=== PATIENT | male | born 1995 ===

== ENCOUNTER 2019-09-11 08:26 | Outpatient (CLI) | payer OTHER, MEDICAID, SELFPAY | END 2019-09-11 08:27 | disposition home or self-care (01) | PROVIDERS: PCP Family Medicine; Visit Provider Internal Medicine Medical Oncology | DX: D58.2 Other hemoglobinopathies (principal); R79.9 Abnormal finding of blood chemistry, unspecified; Q90.9 Down syndrome, unspecified; R74.0 Nonspecific elevation of levels of transaminase and lactic acid dehydrogenase [LDH]; E78.5 Hyperlipidemia, unspecified | CPT/HCPCS: 99205 ==

== ENCOUNTER 2019-11-13 14:49 | Outpatient (CLI) | payer OTHER, MEDICAID, SELFPAY ==
--- NOTE | 2019-11-16 15:42 | ONC FU_ITS ---
Dr. Gomez Patient Follow-Up Note Patient: Dorian Collins Unit #: [id number]: 1995 Dicatated By: Deniz Gomez M.D.Date of Visit:Nov 13, 2019 Onc Med Follow-up/Prog Note Chief Complaint: Elevated hemoglobin/hematocrit. History of Present Illness: This is a 24 year-old man with a significantly elevated hemoglobin/hematocrit levels. He has Down's syndrome, but he has had no ongoing medical illnesses. He had seen Dr. Penn for an annual exam on 08/30/2019. His laboratory studies included a CBC which showed significantly elevated hemoglobin/hematocrit levels at 19.0 g and 55.8% respectively. The white blood cell count was normal at 4600 and the platelet count was normal 259,000. I do not have any prior studies for comparison, but his mother indicates that it has previously been elevated, though not to this extent. His other laboratory studies included comprehensive metabolic profile which showed normal renal function with BUN 17 and creatinine 1.10 mg/dL. The SGPT was slightly elevated at 56/46 U/L and a total bilirubin was borderline high at 1.1 mg/dL. The SGOT and alkaline phosphatase levels were normal. His hemoglobin A1c was normal at 4.8%. Lipid profile showed elevated total cholesterol at 216 mg/dL and elevation of the calculated LDL at 147 mg/dL. I had seen him initially on 09/11/2019. His repeat CBC showed hemoglobin elevated at 18.7 g but hematocrit just mildly increased at 52.1%. The white blood cell count was borderline low at 4200 and the platelet count was normal at 285,000. His comprehensive metabolic profile showed normal renal function with BUN 14 and creatinine 1.06 mg/dL. The SGPT was slightly elevated at 52/50 U/L. The bilirubin and the other liver enzymes were normal. LDH was normal at 121 U/L. On the molecular analysis the JAK2 ([id number]) mutation was not detected, and the JAK2 exons 12-15 mutations also were not detected. An erythropoietin level was requested, but that study apparently was not done. He is seen for a follow-up visit. He has been feeling good generally. He has good energy and he has normal activity. ECOG score is 0. Appetite also is good. He has no fever or night sweats. He sometimes has cough associated with phlegm buildup in his throat. He has no shortness of breath or chest pain. He has been having some acid reflux symptoms, and he has been taking Prilosec off and on. He has no other GI or complaints. He has no significant joint or bone pain. He does not complain of headache or dizziness. He has no focal neurologic symptoms. Medications: Jennifer Allergy (180 mg) Tablet Oral daily, Omeprazole 1 (20 mg) Capsule Delayed Release Oral daily, One Daily Mens 1 Tablet Oral daily Allergies: Penicillins Review of Systems: Constitutional - He has good energy and he has normal activ. Appetite is good and weight is stable. No fever or night sweats. ECOG score is 0, ENMT - No sinus congestion/drainage. No mouth sores. He sometimes has sore throat. No difficulty swallowing, Hematologic/Lymphatic - No abnormal bruising or bleeding, Respiratory - No shortness of breath. He sometimes has cough due to stuff in his throat. No pleuritic pain or hemoptysis, Cardiovascular - No angina pain. No palpitations, Gastrointestinal - No nausea or vomiting. He has some acid reflux. He has been taking Prilosec off and on. No diarrhea or constipation. No blood in the stool or black stools, Genitourinary (M) - No dysuria or hematuria. No urinary frequency. No urgency or incontinence, Musculoskeletal - No joint or bone pain, Neurologic - No headache or dizziness. No numbness or tingling. No other focal neurologic symptoms, Psychiatric - No anxiety or depression. No insomnia. Vital Signs: Performed on Nov 13, 2019 15:25 Height - 63.00 in Weight - 172 lbs BSA - 1.81 sq.m BMI - 30.47 (HIGH) Temperature - 99.0 F (HIGH) Pulse - 83 /min Respiration - 16 /min BP - 114/68 mm(hg) O2 Sat - 99 % Pain - 0 Physical Examination: Constitutional - He looks good generally, Eyes - Sclerae nonicteric. Conjunctivae clear, ENMT - No lesions noted in the oral cavity, Hematologic/Lymphatic - No cervical, clavicular, or axillary adenopathy, Respiratory - Lungs are clear with good air movement bilaterally, Cardiovascular - Heart rhythm is regular. There is no murmur, gallop, or rub noted, Abdomen - Soft and non-tender. Liver and spleen are not enlarged. There is no abdominal mass or ascites noted and there is no inguinal adenopathy, Extremities - No edema, Neurologic - No focal neurologic deficits noted. Lab/Imaging: Test performed on Nov 13, 2019 13:45 WBC 5.5 10^9/L RBC 5.76 10^12/L HGB 18.6 g/dL HCT 50.9 % MCV 88.4 fl MCH 32.3 pg MCHC 36.5 g/dL RDW 13.7 % Platelet Count 287 10^9/L MPV 9.0 fL Neutrophils (Gran) 3.22 10^9/L Lymphocytes 1.70 10^9/L Monocytes 0.46 10^9/L Eosinophils 0.04 10^9/L Basophils 0.07 10^9/L Manual Lymphocytes 31 % Manual Monocytes 8 % Manual Eosinophils 1 % Manual Basophils 1 % Test performed on Sep 11, 2019 10:11 Glucose 105 mg/dL LDH, Total 121 IU/L BUN 14 mg/dL Creatinine 1.06 mg/dL Cr Clearance (Est) 120.63 mL/min Sodium 136 mmol/L Potassium 4.2 mmol/L Chloride 100 mmol/L CO2 27 mmol/L Calcium 9.5 mg/dL Protein, Total 7.4 g/dL Albumin 4.4 g/dL Bilirubin, Total 0.9 mg/dL Alkaline Phosphatase 63 IU/L AST (SGOT) 26 IU/L ALT (SGPT) 52 IU/L Impression: 1. Patient with elevated hemoglobin/hematocrit levels. The findings appear to be most consistent with stress erythrocytosis , i.e. decreased plasma volume. There has been no evidence clinically for underlying hypoxia. His molecular studies are inconsistent with polycythemia vera, and his abdominal ultasound shows no evidence of renal tumor. 2. He has Down's syndrome. 3. He has slightly elevated liver SGPT and borderling high total bilirubin. His abdominal ultrasound shows findings which are suggestive of hepatic steatosis. 4. Hyperlipidemia. Plan: As a precaution, I am also going to again request an erythropoietin level, just to verify that it is not very low or very high. However, I do not think any further evaluation is indicated, particularly with his blood counts now just being slightly elevated and with him being completely asymptomatic. He can continue his regular follow-up with Dr. Penn, which should include yearly blood counts and chemistry studies. Any further evaluation for the hepatic steatosis will be left to the discretion of Dr. Penn. I will plan to see him again only as needed. Signed By: Deniz Gomez M.D. <<Signature on File>>
== END 2019-11-13 14:50 | disposition home or self-care (01) ==
LOC: ONCMED 14:49
PROVIDERS: PCP Family Medicine; Visit Provider Internal Medicine Medical Oncology
DX: D75.1 Secondary polycythemia (principal); Q90.9 Down syndrome, unspecified; K76.0 Fatty (change of) liver, not elsewhere classified; E78.5 Hyperlipidemia, unspecified
CPT/HCPCS: 99214

== ENCOUNTER → 2021-09-03 09:30 | Outpatient (BNVA) | payer OTHER, MEDICAID, SELFPAY | PROVIDERS: PCP Family Medicine; Visit Provider Family Medicine | DX: Z00.00 Encounter for general adult medical examination without abnormal findings (principal); D75.1 Secondary polycythemia; E78.5 Hyperlipidemia, unspecified; Q90.9 Down syndrome, unspecified | CPT/HCPCS: 80053; 80061; 84443; 85025 ==

== ENCOUNTER → 2022-08-26 08:35 | Outpatient (BNVA) | payer OTHER, MEDICAID, SELFPAY | PROVIDERS: PCP Family Medicine; Visit Provider Family Medicine | DX: Z00.00 Encounter for general adult medical examination without abnormal findings (principal); E03.9 Hypothyroidism, unspecified; Q90.9 Down syndrome, unspecified; D75.1 Secondary polycythemia; Z13.6 Encounter for screening for cardiovascular disorders | CPT/HCPCS: 80053; 80061; 84443; 85025 ==

== ENCOUNTER → 2023-09-15 13:56 | Outpatient (BNVA) | payer OTHER, MEDICARE, MEDICAID, SELFPAY | PROVIDERS: PCP Family Medicine; Visit Provider Family Medicine | DX: Q90.9 Down syndrome, unspecified (principal); Z00.00 Encounter for general adult medical examination without abnormal findings; D75.1 Secondary polycythemia; E03.9 Hypothyroidism, unspecified | CPT/HCPCS: 80053; 80061; 84443; 85025 ==

== ENCOUNTER → 2024-09-17 12:48 | Outpatient (BNVA) | payer OTHER, MEDICARE, MEDICAID, SELFPAY | PROVIDERS: PCP Family Medicine; Visit Provider Family Medicine | DX: Z00.00 Encounter for general adult medical examination without abnormal findings (principal); Q90.9 Down syndrome, unspecified; D75.1 Secondary polycythemia; E03.9 Hypothyroidism, unspecified | CPT/HCPCS: 80053; 82607; 83036; 84443; 85025 ==